=== PATIENT | male | born 1955 | race Caucasian/White ===

== ENCOUNTER 2019-01-01 03:24 | Inpatient (IN) | payer MEDICAID ==
[~2019-01-01] VITALS: Ht 185.4 cm; Wt 81.8 kg
[2019-01-01 06:30] LABS: Basophils # (auto) 0.1 uL; Basophils % (auto) 0.7 % (0.0-2.0); Eosinophils # (auto) 0.7 uL; Eosinophils % (auto) 7.7 % (0.0-7.0); Hematocrit 36.7 % (41.0-53.0); Hemoglobin 12.1 g/dL (13.5-17.5); Lymphocytes # (auto) 2.8 uL; Lymphocytes % (auto) 31.7 % (10.0-50.0); Mean Corpuscular Hemoglobin 30.5 pg (28.0-32.0); Mean Corpuscular Volume 92.2 fL (80.0-100.0); Monocytes # (auto) 0.9 uL; Neutrophils # (auto) 4.4 uL; Neutrophils % (auto) 49.9 % (37.0-80.0); Nucleated Red Blood Cells % 0.1 %; Platelet Count (auto) 264 10^3/uL (140-450); Red Blood Cells 3.98 10^6/uL (4.5-5.90); Red Cell Distribution Width 14.7 % (11.8-14.3); White Blood Cell 8.8 10^3/uL (4.4-10.8)
[2019-01-01 06:43] LABS: INR < 0.93 (0.9-1.15); Partial Thromboplastin Time 25.8 sec (23.64-32.05)
[2019-01-01 06:50] LABS: Albumin 3.9 g/dL (3.4-5.0); BUN/Creatinine Ratio 28.4; Calcium 8.9 mg/dL (8.5-10.1); Potassium 4.1 mmol/L (3.5-5.1)
[2019-01-01 06:54] LABS: Bilirubin, Total 0.3 mg/dL (0.2-1.0); Total Protein 7.5 g/dL (6.4-8.2)
[2019-01-01] MEDS ORDERED: SODIUM CHLORIDE 0.9% 1,000 ML IV ONE (12:24)
[2019-01-01 12:31] LABS: Urine WBC None Seen /hpf (0 - 3)
[2019-01-01 12:36] LABS: Urine Bacteria NONE SEEN /hpf (None Seen); Urine Blood Negative /uL (Negative); Urine Specific Gravity 1.007 (1.001-1.035)
[2019-01-01] MEDS ORDERED: fentaNYL CITRATE 100 MCG/2 ML VL ONE (15:58)
[2019-01-01] MEDS ORDERED: ONDANSETRON HCL 4 MG/2 ML VIAL ONE (15:59)
[2019-01-01] MEDS ORDERED: MIDAZOLAM HCL 1MG/1ML-2 ML VIAL ONE (15:59)
[2019-01-01] MEDS ORDERED: SODIUM CHLORIDE LOCK 10 ML ONE (15:59)
[2019-01-01] MEDS ORDERED: PROPOFOL 10 MG/ML 20 ML IV ONE (15:59)
[2019-01-01] MEDS ORDERED: LIDOCAINE 1% HCL (LOCAL ANESTH.) INJ 20ML MDV ONE (17:03)
[2019-01-01] MEDS ORDERED: ceFAZolin 1GM/50ML 100 ML IV ONE (17:14)
[2019-01-01] MEDS ORDERED: HYDROmorphone HCL 2 MG/ML VL IV PRN (17:15)
[2019-01-01] MEDS ORDERED: METOCLOPRAMIDE HCL 5MG/ml INJ 2ml VIAL IV PRN (17:15)
[2019-01-01] MEDS ORDERED: ACCU-CHEK COMFORT CURVE STRIP VI ONE (17:15)
[2019-01-01] MEDS ORDERED: fentaNYL CITRATE 100 MCG/2 ML VL IV PRN (17:15)
--- NOTE | 2019-01-01 18:15 | NUR ---
RECEIVED PATIENT TO THE FLOOR, NO SIGNS AND SYMPTOMS OF DISTRESS NOTED. BED LOCKED IN LOWEST POSITION WITH TWO SIDE RAILS UP AND CALL LIGHT IN REACH.
[2019-01-01] MEDS ORDERED: METF-372 (19:18)
[2019-01-01] MEDS ORDERED: HYDR-4072 (19:18)
[2019-01-01] MEDS ORDERED: LISI2.5T47 (19:18)
[2019-01-01] MEDS ORDERED: ATOR20TA50 (19:18)
[2019-01-01] MEDS ORDERED: HYDR-4798 PO (20:28)
[2019-01-01] MEDS ORDERED: METF-370 PO (20:28)
[2019-01-01] MEDS ORDERED: DOXY100C2 PO (20:28)
[2019-01-01] MEDS ORDERED: HYDROcodone-ACET 10/325MG TAB PO PRN (20:30)
[2019-01-01 21:41] VITALS: BP 118/79
[2019-01-02 05:09] VITALS: BP 129/79
--- NOTE | 2019-01-02 08:15 | NUR ---
Opening Note Assumed care of patient, he is A & O x4, no s/s of distress, patient is comfortable at this time. POC discussed. Bed is in lowest, locked position, call light within reach, bed rails up x2. Patient is ambulatory, will continue to monitor Q1h and PRN.
[2019-01-02 08:50] VITALS: BP 130/88
[2019-01-02 09:19] VITALS: BP 130/88
--- NOTE | 2019-01-02 09:42 | NUR ---
Paged Dr. Keating regarding patient discharge per Dr. Walters request.
--- NOTE | 2019-01-02 12:28 | NUR ---
Paged Dr. Keating regarding discharge
[2019-01-02 12:57] VITALS: BP 134/88
--- NOTE | 2019-01-02 13:04 | NUR ---
Dr. Keating spoke to Meera PABLO Covered this RN for lunch, orders for discharge received. Will discharge per orders.
--- NOTE | 2019-01-02 13:35 | NUR ---
Discharge instructions given as ordered. Encourage to follow up with PMD as instructed. All questions and concerns addressed. Patient verbalized understanding. Medication reconciliation form completed and copy given to patient. IV removed with catheter intact, pressure dressing applied. Patient ambulated to vehicle with this RN, with all personal belongings, accompanied by staff and family member. No distress noted at time of departure.
== END 2019-01-02 13:35 | disposition home or self-care (01) | DRG 314 ==
LOC: ER 03:26 → CENTRAL 03:27
PROVIDERS: ADMIT Podiatrist; ATTEND Podiatrist
PROC: 0Y6S0Z0 Detachment at Left 2nd Toe, Complete, Open Approach (ICD-10-PCS; principal; 2019-01-01 17:23)
DX: E11.69 Type 2 diabetes mellitus with other specified complication (principal); M86.8X7 Other osteomyelitis, ankle and foot; I10 Essential (primary) hypertension; Z89.412 Acquired absence of left great toe; Z79.899 Other long term (current) drug therapy
CPT/HCPCS: 36415; 71046; 73630; 80053; 81001; 82962; 83735; 85025; 85610; 85730; 86850; 86900; 86901; 93005; 96360; G0378; J0690; J2001; J2250; J2405; J2704